=== PATIENT | male | born 1980 | race Caucasian/White ===

== ENCOUNTER → 2017-01-24 | Outpatient (CLI) | payer OTHER | LOC: FIMAGING 10:49 | PROVIDERS: ATTEND Family Medicine | DX: M54.2 Cervicalgia (principal) ==

== ENCOUNTER → 2017-06-12 | Outpatient (CLI) | payer OTHER | LOC: FIMAGING 16:43 | PROVIDERS: ATTEND Family Medicine | DX: M41.87 Other forms of scoliosis, lumbosacral region (principal) ==

== ENCOUNTER 2018-08-20 11:28 | Emergency (ER) | payer OTHER ==
--- NOTE | 2018-08-20 12:13 | EDPHY ---
H & P Stated Complaint: Irregular heart beat since last night. Source: Patient Exam Limitations: No limitations - Personal History Current Tetanus Diphtheria and Acellular Pertussis (TDAP): Yes - Medical/Surgical History Hx Asthma: No Hx Chronic Respiratory Disease: No Hx Diabetes: No Hx Cardiac Disease: No Hx Renal Disease: No Hx Cirrhosis: No Hx Alcoholism: No Hx HIV/AIDS: No Hx Splenectomy or Spleen Trauma: No Other PMH: Irregular heart rate as a teenager. 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 He denies shortness of breath. He denies chest pain. No nausea vomiting. No diaphoresis. No lightheadedness. He states that he does feel slightly off but cannot explain it. Severity: Moderate Modifying factors: None REVIEW OF SYSTEMS: Constitutional: denies: chills, fever, recent illness, recent injury EENTM: denies: blurred vision, double vision, nose congestion Respiratory: denies: cough, shortness of breath Cardiac: See HPI Gastrointestinal/Abdominal: denies: abdominal pain, diarrhea, nausea, vomiting, blood streaked stools Genitourinary: denies: dysuria, frequency, hematuria, pain Musculoskeletal: denies: joint pain, muscle pain Skin: denies: lesions, rash, jaundice, bruising Neurological: denies: headache, numbness, paresthesia, tingling, dizziness, weakness Hematologic/Lymphatic: denies: blood clots, easy bleeding, easy bruising Immunologic/allergic: denies: HIV/AIDS, transplant 10 systems reviewed and negative except as noted EXAM: GENERAL: Well-appearing, well-nourished and in no acute distress. HEAD: Atraumatic, normocephalic. EYES: Pupils equal round and reactive to light, extraocular movements intact, sclera anicteric, conjunctiva are normal. ENT: TMs normal, nares patent, oropharynx clear without exudates. Moist mucous membranes. NECK: Normal range of motion, supple without lymphadenopathy or JVD. LUNGS: Breath sounds clear to auscultation bilaterally and equal. No wheezes rales or rhonchi. HEART: Irregular heartbeat without murmurs, rubs or gallops. ABDOMEN: Soft, nontender, normoactive bowel sounds. No guarding, no rebound. No masses appreciated. BACK: No CVA tenderness, no spinal tenderness, step-offs or deformities EXTREMITIES: Normal range of motion, no pitting or edema. No clubbing or cyanosis. NEUROLOGICAL: Cranial nerves II through XII grossly intact. Normal speech, normal gait. 5/5 strength, normal movement in all extremities, normal sensation , normal reflexes PSYCH: Normal mood, normal affect. SKIN: Warm, dry, normal turgor, no visible rashes or lesions. (Allen Marquis) Constitutional: Initial Vital Signs Temperature (C) 36.4 C 08/20/18 11:30 Heart Rate 76 08/20/18 11:30 Respiratory Rate 16 08/20/18 11:30 Blood Pressure 109/76 08/20/18 11:30 O2 Sat (%) 98 08/20/18 11:30 O2 Delivery Mode Room Air Allergies/Adverse Reactions: No Known Allergies Allergy (Unverified 08/20/18 11:34) Home Medications: Medication Instructions Recorded NK [No Known Home Meds] 08/20/18 Medical Decision Making - Diagnostics Imaging: Discussed imaging studies w/ score caller Radiologist - Diagnostics EKG Interpretation: An EKG obtained and was read and documented in trace view. Please see trace view for full reading and report. Atrial fibrillation with rate controlled junctional rhythm (Allen Marquis) ED Course/Re-evaluation: 4:14 p.m.: I never evaluated this patient. (Brian Fatima) 1:00 p.m. the patient's lab work is reassuring. His rate remains in the 70s. It it remains irregular. I will consult Cardiology for admission is verses outpatient cardioversion. 1:05 p.m. I discussed the case with Dr. Sai Nugent who will come to consult. 2:[address] Nugent is here to consult. Dr. Nugent will take the patient up to the cardiac area to do a transesophageal echo and cardiovert now. 3:15 p.m. as I was leaving Dr. Nugent informed me that the patient is contemplating going home and having the transesophageal echo and cardioversion tomorrow in the office. The patient does not need Xarelto because he has a chads score of 0. At this point the patient is still deciding. I did discuss this with Dr. Gemma Campbell, if the patient needs to be discharged from here. ( Allen Marquis) I spoke with Dr. Nugent and learned that Mr. Alvarado is opting to return home with follow up tomorrow morning with cardiology. No anticoagulation, as discussed above. Patient understands danger signs that should prompt immediate return and is comfortable with the plan. (Gemma Campbell) Differential Diagnosis: Partial list of the Differential diagnosis considered include but were not limited to; atrial fibrillation, SVT and although unlikely based on the history and physical exam, I also considered acute coronary disease, PE, infection. (Allen Marquis) - Data Points Laboratory Results: Laboratory Results 08/20/18 12:21 08/20/18 12:21 Point of Care Test Results: Chemistry 08/20/18 12:25 POC Troponin I 0.01 ng/mL ng/mL (0.00-0.08) Departure - Departure Disposition: Home, Routine, Self-Care Clinical Impression: Atrial fibrillation Qualifiers: Atrial fibrillation type: paroxysmal Qualified Code(s): I48.0 - Paroxysmal atrial fibrillation Condition: Fair Instructions: A-fib (Atrial Fibrillation) (ED) Additional Instructions: Contact Dr. Nugent tomorrow morning, as discussed with him. Do not eat or drink anything prior to calling his office. If you develop persistent rapid heart rate, shortness of breath, lightheadedness or fainting comma chest-pain--you should return to the emergency department immediately. Referrals: Higinio Moreira [Primary Care Provider] - As per Instructions Jacinto Nugent MD [Medical Doctor] - 2-3 days, call for appt.
--- NOTE | 2018-08-20 12:14 | CPEKG ---
Test Reason : OPEN Blood Pressure : / mmHG Vent. Rate : 066 BPM Atrial Rate : 000 BPM P-R Int : 186 ms QRS Dur : 110 ms QT Int : 383 ms P-R-T Axes : 000 071 028 degrees QTc Int : 402 ms Unknown rhythm, irregular rate Probable left ventricular hypertrophy ST elevation suggests acute pericarditis Confirmed by Allen Marquis ([id number]) on 08/20/2018 12:14:11 PM Referred By: Confirmed By:Allen Marquis
[2018-08-20 12:33] LABS: PLATELET COUNT 190 10^3/uL (150-400)
[2018-08-20 12:45] LABS: INR 1.02 (0.83-1.16); PROTIME(PATIENT) 13.6 SEC (12.0-15.0)
[2018-08-20 15:47] VITALS: BP 100/70
--- NOTE | 2018-08-20 16:20 | GCON ---
CARDIOLOGY CONSULTATION DATE OF CONSULTATION: 08/20/2018 REASON FOR CONSULTATION: Atrial fibrillation. HISTORY OF PRESENT ILLNESS: The patient is a pleasant 38-year-old gentleman with a remote history of pericarditis and paroxysmal atrial fibrillation at the age of 16, who has noticed intermittent episo anusha of an irregular heart rhythm over the last 16 years, who presented to [facility] today with sustained onset of an irregular rhythm. He states the irregular rhythm that he has been e xperiencing since last evening feels identical to the irregular rhythm he has been experiencing for t he last 12 years. The difference between this episode is it is persisting for a much longer period o f time. He denies any associated shortness of breath, dyspnea, dizziness, lightheadedness, near sync ope, or syncope. He has no complaints of chest pain or chest pressure. He has no complaints of PND, orthopnea, or lower extremity edema. ECG today demonstrates rate controlled atrial fibrillation at 66 beats per minute. He is on no medic ations. 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 He has run the [employer] as recently as earlier this year. He has participated in competitive biathlons and [place] ski racing since the age of 12. He is in excellent physical condition, and I think this is r esponsible for his rate controlled atrial fibrillation. ECG also demonstrates signs of LVH and early repolarization changes. PAST MEDICAL HISTORY: Pericarditis and atrial fibrillation at the age of 16. No other significant p ast medical history. MEDICATIONS: None. ALLERGIES: None. SOCIAL HISTORY: He is . He lives with his . They are getting ready to have their first child within the next 2 weeks. He is a lifelong nonsmoker. Rarely drinks alcohol. FAMILY HISTORY: Family history is notable for father with WPW. PHYSICAL EXAMINATION: VITAL SIGNS: Blood pressure 107/86, heart rate of currently 66, in atrial fib rillation, respiratory rate of 16, oxygen saturation 95% on room air. GENERAL: He is awake, alert, oriented, appropriate. No apparent distress. He is physically fit appearing. NECK: There is no ev idence of JVP or carotid bruits. LUNGS: Clear to auscultation bilaterally. CARDIAC: S1, S2. Irre gular/irregular. No murmurs, rubs, or gallops. PMI is not displaced. ABDOMEN: Soft, nontender, no ndistended. There is no pulsatile mass or abdominal bruit. Distal pulses are intact. He has no ron dence of cyanosis, clubbing or edema. DATA: White blood cell count 4.09, hemoglobin 17, hematocrit 48.2, platelet count 190. INR 1.02. S odium 140, potassium 4.6, chloride 105, bicarb 25, BUN 15, creatinine 0.8, glucose 75, AST 30, ALT 37 , alkaline phosphatase 64, point of care troponin 0.01, albumin 4.7. IMAGING: Chest x-ray demonstrates no evidence of cardiopulmonary abnormality. Heart is within kiran l limits of size. ECG demonstrates rate controlled atrial fibrillation at 66 beats per minute, with evidence of LVH and repolarization changes. Rhythm is irregular/irregular, consistent with atrial fibrillation. IMPRESSION: Rate controlled atrial fibrillation. 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 He was initially diagnosed with atrial fibrillati on at the age of 16 in the setting of pericarditis. This information was provided by his mother in t he form of a text that I reviewed myself personally. She did say endocarditis and not pericarditis, but I think her description of what she described as "inflammation around the heart as well as ST-seg ment changes" is consistent with pericarditis and not endocarditis. He denies any history of endocar ditis. His CHADS-VASc score is 0. He is on no medications. I have discussed options with him in detail. He has been n.p.o. since 9 a.m. Would recommend consid ering DEEPAK-guided cardioversion with anticoagulation post cardioversion for 30 days, followed by consu ltation with Dr. Cohen for consideration of atrial fibrillation ablation in the setting of a 38-year-ol d competitive triathlete. Alternative options would be to discharge patient home, present to my office tomorrow morning for rep eat ECG to assess whether he remains in atrial fibrillation. If he remained in atrial fibrillation a t that time, would plan to pursue DEEPAK-guided cardioversion at that time. With rate controlled atrial fibrillation in the 60s and CHADS-VASc score of 0, would not give him metoprolol or aspirin at this time. Would initiate Eliquis if we were planning on pursuing cardioversion, which he has not decided today. Would recommend outpatient workup, including complete transthoracic echocardiogram, exercise treadmil l stress test. I would also recommend followup with Dr. Cohen for consideration of ablation as describ ed above. PLAN: 1. The patient is considering DEEPAK-guided cardioversion this afternoon. 2. Alternative option would be present to the office tomorrow morning for reassess of ECG and move f orward with DEEPAK-guided cardioversion tomorrow if he persists in atrial fibrillation. 3. CHADS-VASc score of 0. No indication for aspirin or anticoagulation at this time, unless we are pursuing cardioversion. 4. Rate-controlled atrial fibrillation, primarily in the 60s. Would not initiate beta kevan thera py at this time. Over an hour was spent with patient reviewing options, discussing with the patient, as well as his wi fe. I have answered all of their questions. /[id number]/MODL
== END 2018-08-20 15:47 | disposition home or self-care (01) ==
DX: I48.91 Unspecified atrial fibrillation (principal)
CPT/HCPCS: 84484-PO